=== PATIENT | female | born 1935 | race Caucasian/White ===

== ENCOUNTER 2016-04-20 20:15 | Emergency (ER) | payer MEDICARE, MEDICAID ==
[2016-04-20 20:47] LABS: #Lymphocytes 1.1 thou/uL (1.20-3.40); #Monocytes 0.7 thou/uL (0.11-0.59); #Neutrophils 5.8 thou/uL (1.40-6.50); %Basophils 0.5 % (0.0-1.0); %Eosinophils 0.2 % (0.0-10.0); %Monocytes 9.4 % (0.0-10.0); Hematocrit 44.8 % (36.0-47.0); Red Blood Cell (RBC) Count 4.41 mill/uL (4.20-5.40); White Blood Cell (WBC) Count 7.6 thou/uL (4.8-10.8)
--- NOTE | 2016-04-20 20:47 | RAD ---
PORTABLE CHEST: Date: 04/20/16 An AP portable film at 2030 hours is compared with a 12/26/15 study. FINDINGS: The heart is mildly to moderately enlarged and there is mild congestion of the vessels. Slight inter stitial prominence is present. There may be some tiny pleural effusions, but not large ones. The lenard gs are hyperexpanded as usual. There is a linear scar in the left mid lung. A little increase in rig ht basilar markings could be due to the vascular congestion or an early infiltrate. IMPRESSION: 1. Findings consistent with developing CHF. 2. Mild increase in right basilar markings. This may be related to congestive change or even an ear ly infiltrative pneumonia. POS: HOME
[2016-04-20 21:03] LABS: ALT (SGPT) 68 U/L (0-55); AST (SGOT) 39 U/L (5-34); Alkaline Phosphatase 50 U/L (40-150); Anion Gap 14 mmol/L (10-20); BUN (Urea Nitrogen) 20 mg/dL (9.8-20.1); Bilirubin, Total 0.6 mg/dL (0.2-1.2); Calc. Creatinine Clearance 0 mL/min (70-130); Calcium 9.2 mg/dL (7.8-10.44); Carbon Dioxide 30 mmol/L (23-31); Chloride 106 mmol/L (98-107); Estimated GFR-MDRD 78; Globulin 2.8 g/dL (2.4-3.5); Protein, Total 6.7 g/dL (5.8-8.1)
[2016-04-20] MEDS ORDERED: Enoxaparin Sodium 100 MG/ML SYRINGE ONE (21:17)
[2016-04-20] MEDS ORDERED: Furosemide 40 MG/4 ML VIAL ONE (21:48)
--- NOTE | 2016-04-21 01:16 | PICIS ---
[facility] EMERGENCY RECORD COMMUNICATIONS (21:54 JPIP) COMMUNICATIONS: Physician, contacted/paged at [phone], Reason for notification transfer/admission, Dr Preston accepts. TRIAGE ([place] Apr 20, 2016 20:21 KMOR) TRIAGE NOTES: increased sob over last 4 days, hx copd. ([place] Apr 20, 2016 20:21 KMOR) PATIENT: NAME: Michelle Mendoza, AGE: 80, GENDER: female, : [id number], TIME OF GREET: [place] Apr 20, 2016 20:16, PREFERRED LANGUAGE: Divehi, ETHNICITY: Not or , ECODE BILLING MAP: [facility], SSN: [id number], Zip Code: [address], KG WEIGHT: 52.62, PHONE: , , , PERSON ID: [id number], PAYMENT: [place] Medicare, PCP: DO MCKEON KRISTEL. ([place] Apr 20, 2016 20:21 KMOR) COMPLAINT: Shortness of Breath. ([place] Apr 20, 2016 20:21 KMOR) ADMISSION: URGENCY: 2 Emergent, ADMISSION SOURCE: Home, TRANSPORT: CAR, BED: ER -04. ([place] Apr 20, 2016 20:21 KMOR) PAIN: No complaint of pain. (20:41 AADK) No complaint of pain. (20:46 AADK) SIRS SCORING: Heart Rate 110-139 (2), Temp range 96.8-101.1 (0), respiratory rate 12-24 (0), Mental Status altered: no (0), Total SIRS Score 2, Yes, Infection or Suspected Infection. (20:21 AADK) IMMUNIZATIONS: Flu vaccine up to date, Date of immunization: 2015, Pneumococcal vaccine up to date, Date of immunization: 2015. (20:46 AADK) TRIAGE SCREENING: Patient denies suicidal ideation, Patient denies presence of domestic violence. (20:46 AADK) PROVIDERS: TRIAGE NURSE: Gabriela Carrera RN. ([place] Apr 20, 2016 20:21 KMOR) VITAL SIGNS: BP 129/97, Pulse 131, Resp 24, O2 Sat 98, on 2L Oxygen, Time 04/20/2016 20:20. (20:20 KMOR) PREVIOUS VISIT ALLERGIES: codeine. ([place] Apr 20, 2016 20:21 KMOR) codeine. (20:46 AADK) KNOWN ALLERGIES codeine hydrocodone: Reaction: itching tramadol: Reaction: itching Zanaflex: Reaction: Hives, Source: Other Medical Record CURRENT MEDICATIONS pantoprazole: TABLET, DELAYED RELEASE (ENTERIC COATED) : Strength - 40 mg : ORAL Patient Dose: 1 tab(s) Oral once a day. (22:14 AADK) predniSONE: TABLET : Strength - 10 mg : ORAL Patient Dose: 5 mg Oral once a day. (22:14 AADK) furosemide: TABLET : Strength - 20 mg : ORAL &a-1R&a+25V*p+0X*q9912F*c202B*c15G*c2P*p-0X&a-25V&a+1R Name: Michelle Mendoza : 1935 F80 MedRec: [id number] AcctNum: [id number] Prepared: [place] Apr 20, 2016 23:21 by Interface Page 1 of 15 pMD [facility] EMERGENCY RECORD Patient Dose: 1 tab(s) Oral once a day. (22:14 AADK) pravastatin: TABLET : Strength - 40 mg : ORAL Patient Dose: 1 tab(s) Oral once a day. (22:14 AADK) ramipril: CAPSULE : Strength - 5 mg : ORAL Patient Dose: 1 cap(s) Oral 2 times a day. (22:14 AADK) budesonide: AMPUL FOR NEBULIZATION (ML) : Strength - 0.5 mg/2 mL : INHALATION Patient Dose: 1 cap(s) Inhaler once a day. (22:14 AADK) Perforomist: VIAL, NEBULIZER (ML) : Strength - 20 mcg/2 mL : INHALATION Patient Dose: 1 puff(s) Inhaler 2 times a day. (22:14 AADK) albuterol sulfate: VIAL, NEBULIZER (ML) : Strength - 2.5 mg/3 mL (0.083 %) : INHALATION Patient Dose: 1 ea Nebulize every 4 hours prn. (22:15 AADK) glipiZIDE: TABLET : Strength - 5 mg : ORAL Patient Dose: 5 mg Oral once a day (in the morning). (22:17 AADK) baclofen: TABLET : Strength - 10 mg : ORAL Patient Dose: 10 mg Oral 2 times a day. (22:17 AADK) Eliquis: TABLET : Strength - 2.5 mg : ORAL Patient Dose: 2.5 mg Oral 2 times a day. (22:17 AADK) verapamil: CAPSULE,24HR EXTENDED RELEASE PELLET CT : Strength - 100 mg : ORAL Patient Dose: 100 mg Oral once a day (at bedtime). (22:21 AADK) VITAL SIGNS VITAL SIGNS: BP: 129/97, Pulse: 131, Resp: 24, O2 sat: 98 on 2L Oxygen, Time: 04/20/2016 20:20. (20:20 KMOR) Temp: 98.1 (Oral), Time: 04/20/2016 20:31. (20:31 CHOB) BP: 125/68, Pulse: 80, Resp: 18 (Non-Labored), O2 sat: 97 on 2L Oxygen, Time: 04/20/2016 20:40. (20:40 CHOB) BP: 124/71, Pulse: 90, Resp: 19, Pain: 0, O2 sat: 97 on 2L Oxygen, Time: 04/20/2016 21:03. (21:03 CHOB) Pulse: 125 (Irregular), Resp: 30 (Labored), Pain: 0, O2 sat: 98 on 2L Oxygen, Time: 04/20/2016 20:30. (20:30 AADK) BP: 118/75, Pulse: 78, Resp: 20 (Non-Labored), Pain: 0, O2 sat: 97 on 2L Oxygen, Time: 04/20/2016 21:30. (21:30 AADK) BP: 124/73, Pulse: 86, Resp: 22 (Non-Labored), Pain: 0, O2 sat: 97 on 2L Oxygen, Time: 04/20/2016 21:15. (21:15 AADK) BP: 121/70, Pulse: 78, Resp: 20 (Non-Labored), Pain: 0, O2 sat: 97 on 2L Oxygen, Time: 04/20/2016 21:45. (21:45 AADK) BP: 134/68, Pulse: 84, Resp: 20 (Non-Labored), Pain: 0, O2 sat: 95 on 2L Oxygen, Time: 04/20/2016 22:00. (22:00 AADK) Temp: 97.6 (Oral), Time: 04/20/2016 22:25. (22:25 AADK) &a-1R&a+25V*p+0X*i9132O*c202B*c15G*c2P*p-0X&a-25V&a+1R Name: Michelle Mendoza : 1935 F80 MedRec: [id number] AcctNum: [id number] Prepared: [place] Apr 20, 2016 23:21 by Interface Page 2 of 15 pMD [facility] EMERGENCY RECORD BP: 143/66, Pulse: 94, Resp: 22 (Non-Labored), Pain: 0, O2 sat: 97 on 2L Oxygen, Time: 04/20/2016 22:15. (22:15 AADK) BP: 115/68, Pulse: 86, Resp: 20 (Non-Labored), Pain: 0, O2 sat: 98 on 2L Oxygen, Time: 04/20/2016 22:30. (22:30 AADK) BP: 135/82, Pulse: 91 (Irregular), Resp: 23 (Non-Labored), Pain: 0, O2 sat: 98 on 2L Oxygen, Time: 04/20/2016 22:53. (22:53 AADK) NURSING ASSESSMENT: FALL RISK (22:22 AADK) FALL RISK: Fall risk assessment findings include: no history of falls (0), No bed rest greater than 2 days (0), No use of level of consciousness altering agents with mentation or cognitive changes (0), No change in blood pressure (0), No sensory deficits (0), Impaired mobility (3), No neurologic diagnosis (0), Elimination problems (3), No confusion (0), Total score 6, Fall risk, Notes: INITIATED FALL RISK DUE TO THIS SCORE. YELLOW NON-SKID SOCKS APPLIED AND YELLOW BAND APPLIED TO PT'S ID BAND. HENDRICH II FALL RISK: Hendrich II Fall Risk assessment findings include patient not confused, disoriented or impulsive, not symptomatic or depressed, altered elimination(1), no dizziness or vertigo, female, no antiepileptics (anticonvulsants) administered, no Benzodiazepines administered, Pushes up, successful in one attempt(1), Total score 2. NURSING ASSESSMENT: RESPIRATORY /CHEST (20:30 AADK) CONSTITUTIONAL: Patient arrives, via hospital wheelchair, Gait steady, History obtained from patient, Patient appears, in respiratory distress, Patient cooperative, Patient alert, Oriented to person, place and time, Skin warm, Skin dry, Skin normal in color, Mucous membranes pink, Mucous membranes moist, Patient is well-groomed, Patient complains of SOB, PT PRESENTS TO ER WITH C/O SOB THAT HAS GRADUALLY BECOME WORSE OVER THE PAST 2 WEEKS, PT STATES "EVER SINCE THAT LUNG DOCTOR CHANGED MY MEDICATION 2 WEEKS AGO." MILD RESPIRATORY DISTRESS NOTED. PLACED ON O2 AT 2LPM. SKIN W/D, PINK. O2 SAT 98% AT THIS TIME. LUNGS DIMINISHED POSTERIOR. NO COUGH NOTED. A/R PULSE EQUAL AND IRREGULAR. PT ON MACHINE TOOL OPERATOR SHOWING AFIB W/RVR. DR WHALEY AT BEDSIDE AND AWARE. RESPIRATORY/CHEST: Lungs auscultated, Breath sounds diminished, to bilateral upper lobes, to bilateral lower lobes, POSTERIOR ONLY, Respiratory assessment findings include respiratory effort, labored, dyspneic, Respirations regular, Converses, in short phrases, Neck and chest exam findings include trachea midline, Chest expansion equal, Chest movement symmetrical, no signs of distress, no retractions noted, no cyanosis, no associated cough noted, no associated fever. SAFETY: Side rails up, Cart/Stretcher in lowest position, Family at bedside, Call light within reach, Hospital ID band on, Patient in view of the nursing station. &a-1R&a+25V*p+0X*w4920L*c202B*c15G*c2P*p-0X&a-25V&a+1R Name: Mcihelle Mendoza : 1935 F80 MedRec: [id number] AcctNum: [id number] Prepared: [place] Apr 20, 2016 23:21 by Interface Page 3 of 15 pMD [facility] EMERGENCY RECORD NURSING ASSESSMENT: SKIN (22:23 AADK) SKIN: Skin assessment findings include skin warm, Skin dry, Skin normal in color, Notes: NO OPEN AREAS/SKIN BREAKDOWN NOTED. NURSING PROCEDURE: MACHINE TOOL OPERATOR PATIENT IDENTIFIER: Patient actively involved in identification process, Patient's identity verified by patient stating name, Patient's identity verified by patient stating date. (20:24 AADK) MACHINE TOOL OPERATOR: Cardiac monitoring indicated for compliant of an irregular heart rate, Cardiac monitoring indicated for SOB, Patient placed on monitor worker, Heart rate: 130'S, showing atrial fibrillation with rapid ventricular response, without ectopy, Strip posted on chart, Patient placed on non-invasive blood pressure monitor, with disposable blood pressure cuff applied, Patient placed on continuous pulse oximetry, Adult/pediatric oxisensor applied, Oxygen saturation 98%, Notes: ON 2 L NC. (20:24 AADK) FOLLOW-UP: After procedure, alarms set and on, After procedure, patient tolerating monitoring. (20:50 AADK) NURSING PROCEDURE: COMMUNICATIONS COMMUNICATIONS: Ambulance service, contacted at [phone], Name of provider [facility], Person contacted [facility], requested for transfer to another facility, by advanced life support transport, STATES [facility] IS ON A CALL. (21:55 AADK) Ambulance service, Person contacted [facility] GUTI[facility]RREZ CALLED BACK AND SAID [facility] IS STILL ON A CALL, SHE WILL SEND A TRUCK FROM [facility] TO TRANSFER PT. THIS NURSE UPDATED DR WHALEY ON DELAY IN TRANSFER. (22:16 AADK) Ambulance service, Person contacted [facility] GUTI[facility]RREZ CALLED BACK AND SAID [facility] IS NOW ON THEIR WAY TO TRANSFER PT TO [facility] ER. (22:39 AADK) NURSING PROCEDURE: EKG CHART (20:24 AADK) PATIENT IDENTIFIER: Patient actively involved in identification process, Patient's identity verified by patient stating name, Patient's identity verified by patient stating date. EKG: EKG indicated for complaint of an irregular heart beat, EKG indicated for SOB, 12 lead EKG performed on the left chest, done by Cathy CARRERA RN, first EKG. NURSING PROCEDURE: INTAKE AND OUTPUT INTAKE AND OUTPUT: Total Intake (ml): 0ml, Urine output(ml): 250, Total Output (ml): 250ml, Grand Total: Output is greater than intake by 250mls. (22:07 AADK) Total Intake (ml): 0ml, Urine output(ml): 350, Total Output (ml): 350ml, Grand Total: Output is greater than intake by 350mls. (22:26 AADK) Total Intake (ml): 0ml, Urine output(ml): 350, Total Output &a-1R&a+25V*p+0X*n5656A*c202B*c15G*c2P*p-0X&a-25V&a+1R Name: Michelle Mendoza : 1935 F80 MedRec: [id number] AcctNum: [id number] Prepared: [place] Apr 20, 2016 23:21 by Interface Page 4 of 15 pMD [facility] EMERGENCY RECORD (ml): 350ml, Grand Total: Output is greater than intake by 350mls. (22:44 AADK) NURSING PROCEDURE: IV (20:35 AADK) PATIENT IDENITIFIER: Patient actively involved in identification process, Patient's identity verified by patient stating name, Patient's identity verified by patient stating date. IV SITE 1: IV therapy indicated for medication administration, IV therapy indicated for SOB, IV established, to the right antecubital, using an 18 gauge catheter, in one attempt, IV site prepped with Chlorhexidine, Saline lock established, Flushed with normal saline (mls): 10, Labs drawn at time of placement, labeled in the presence of the patient and sent to lab, Blood cultures drawn at time of placement, labeled in the presence of the patient and sent to lab. NURSING PROCEDURE: NURSE NOTES NURSES NOTES: Patient is improving, Patient in no apparent distress, Patient is awaiting results, Patient re-positioned to high Bearden's position, Notes: PT STATES SHE IS BREATHING BETTER. DENIES PAIN. (21:21 AADK) Notes: PT DID NOT BRING HER MEDICATION LIST OR MEDICATIONS. PT STATES HER GRANDSON ANNE CAN GO AND GET THE LIST AND MEDICATIONS. THIS NURSE ASKED ANNE TO PLEASE GO AND GET PT'S MEDICATIONS SO WE CAN VERIFY THEM. ANNE LEFT ER TO GET PT'S MEDS/LIST. (21:00 AADK) Patient assisted to bathroom with steady gait, Patient is improving, Patient in no apparent distress, Assistance offered to patient, Notes: ASSISTED PT TO BSC, VOIDED 250 ML OF CLEAR, YELLOW URINE. (22:07 AADK) NURSING PROCEDURE: OXYGEN THERAPY PATIENT IDENTIFIER: Patient actively involved in identification process, Patient's identity verified by patient stating name, Patient's identity verified by patient stating date. (20:21 AADK) OXYGEN THERAPY: Oxygen therapy indicated for respiratory distress, Oxygen therapy indicated for SOB, Prior to procedure, breath sounds diminished, to bilateral upper lobes, to bilateral lower lobes, POSTEROR ONLY, Oxygen saturation 98%, by adult/pediatric oxisensor, single pulse oximetry reading, 2L oxygen given, via nasal cannula applied, Applied by Cathy CARRERA RN, via nasal cannula. (20:21 AADK) FOLLOW-UP: After procedure, oxygen saturation 98%. (20:50 AADK) NURSING PROCEDURE: TRANSFER TRANSFER: Reason for transfer need for specialized care, Diagnosis: AFIB W/RVR; CHF, Accepting institution: [facility], Accepting physician: DR PRESTON, Referring physician: DR WHALEY, Transported by urgent ambulance, accompanied by emergency medical services personnel, Summary of Care printed, Copy of patient record &a-1R&a+25V*p+0X*t5695X*c202B*c15G*c2P*p-0X&a-25V&a+1R Name: Michelle Mendoza Juliana : 1935 F80 MedRec: [id number] AcctNum: [id number] Prepared: [place] Apr 20, 2016 23:21 by Interface Page 5 of 15 pMD [facility] EMERGENCY RECORD prepared for receiving facility, Copy of diagnostic studies, Status of patient's valuables documented on chart, Patient consent for transfer signed, Family member contacted, GEREMIAS RODRÍGUEZ AT BEDSIDE. (21:49 AADK) Report called to receiving facility, [facility], Provided opportunity to answer questions, Notes: [facility] HERE AND TRANSFERRED PT VIA STRETCHER TO [facility] ER AT THIS TIME. ALL BELONGINGS WITH PT EXCEPT FOR HER HOME O2 TANK WHICH HER GRANDLELAND RODRÍGUEZ IS TAKING HOME AT THIS TIME. (23:05 AADK) BELONGINGS: Belongings remain with patient, Valuables remain with patient. (21:49 AADK) EQUIPMENT WITH PATIENT: Equipment with patient at time of transfer monitor worker, Equipment with patient at time of transfer IV pump, Saline lock intact and patent at time of transfer. (23:05 AADK) ORDER DETAILS Order Name: B type Natriuretic Peptide, Status: Active, Time: 20:29 04/20/2016, User: MARY, - Ordered for: DO Whaley Joseph, - Entered by: DO Whaley Joseph - Sun Apr 20, 2016 20:29, - Quantity: 1, Order Name: MACHINE TOOL OPERATOR ED, Status: Done, Time: 20:39 04/20/2016, User: AADK, - Ordered for: DO Whaley Joseph, - Entered by: DO Whaley Joseph - Sun Apr 20, 2016 20:29, - Quantity: 1, Order Name: Cardiac Profile w/CKMB & Troponin - I, Status: Active, Time: 20:29 04/20/2016, User: MARY, - Ordered for: DO Whaley Joseph, - Entered by: DO Whaley Joseph - Sun Apr 20, 2016 20:29, - Quantity: 1, Order Name: CBC with Differential, Status: Active, Time: 20:29 04/20/2016, User: MARY, - Ordered for: DO Whaley Joseph, - Entered by: DO Whaley Joseph - Sun Apr 20, 2016 20:29, - Quantity: 1, Order Name: Comprehensive Metabolic Panel, Status: Active, Time: 20:29 04/20/2016, User: MARY, - Ordered for: DO Whaley Joseph, - Entered by: DO Whaley Joseph - Sun Apr 20, 2016 20:29, - Quantity: 1, Order Name: Culture, Blood, Status: Active, Time: 20:29 04/20/2016, User: MARY, - Ordered for: DO Whaley Joseph, - Entered by: DO Whaley Joseph - Sun Apr 20, 2016 20:29, - Quantity: 1, Order Name: EKG 12 Lead in Emergency Room, Status: Active, Time: 20:29 04/20/2016, User: MARY, &a-1R&a+25V*p+0X*s4798F*c202B*c15G*c2P*p-0X&a-25V&a+1R Name: Michelle Mendoza : 1935 F80 MedRec: [id number] AcctNum: [id number] Prepared: Marquita Apr 20, 2016 23:21 by Interface Page 6 of 15 D [facility] EMERGENCY RECORD - Ordered for: DO Whaley Joseph, - Entered by: DO Whaley Joseph - Sun Apr 20, 2016 20:29, - Quantity: 1, Order Name: ERRT Oxygen Usage ER, Status: Active, Time: 20:29 04/20/2016, User: MARY, - Ordered for: DO Whaley Joseph, - Entered by: DO Whaley Joseph - Sun Apr 20, 2016 20:29, - Quantity: 1, Order Name: ERRT Pulse Oximeter ER, Status: Active, Time: 20:29 04/20/2016, User: MARY, - Ordered for: DO Whaley Joseph, - Entered by: DO Whaley Joseph - Sun Apr 20, 2016 20:29, - Quantity: 1, Order Name: SALINE LOCK, Status: Done, Time: 20:39 04/20/2016, User: ROBINK, - Ordered for: DO Whaley Joseph, - Entered by: DO Whaley Joseph - Sun Apr 20, 2016 20:29, - Quantity: 1, Order Name: XR Chest 1 View Portable, Status: Active, Time: 20:29 04/20/2016, User: MARY, - Ordered for: DO Whaley Joseph, - Entered by: DO Whaley Joseph - Sun Apr 20, 2016 20:29, - Quantity: 1. MEDICATION ADMINISTRATION SUMMARY Drug Name: Lasix injection, Dose Ordered: 40 mg, Route: IV Push, Status: Given, Time: 21:45 04/20/2016, Drug Name: Lovenox, Dose Ordered: 50 mg, Route: Subcutaneous, Status: Given, Time: 21:20 04/20/2016, Drug Name: Normal Saline, Dose Ordered: 100 mL/hr, Route: IV Fluid Infusion, Status: Given, Time: 20:43 04/20/2016, Drug Name: Cardizem intravenous, Dose Ordered: 5 mg/hr, Route: IV Piggy Back, Status: Given, Time: 20:40 04/20/2016, Drug Name: Cardizem intravenous, Dose Ordered: 20 mg, Route: IV Push, Status: Given, Time: 20:35 04/20/2016, Drug Name: *aspirin oral, Dose Ordered: 324 mg, Route: Oral, Status: Given, Time: 20:33 04/20/2016, *Additional information available in notes, Detailed record available in Medication Service section. MEDICATION SERVICE aspirin oral: Order: aspirin oral (aspirin) - Dose: 324 mg : Oral Notes: 4 X 81mg TABLETS AT ONCE Ordered by: Dima Whaley DO Entered by: DO Marquita Damian Apr 20, 2016 20:30 Documented as given by: [place] Kaplan Apr 20, 2016 20:33 Patient, Medication, Dose, Route and Time verified prior to administration. Amount given: 324MG, Site: Medication administered P.O., Correct &a-1R&a+25V*p+0X*g4805P*c202B*c15G*c2P*p-0X&a-25V&a+1R Name: Michelle Mendoza : 1935 F80 MedRec: [id number] AcctNum: [id number] Prepared: Marquita Apr 20, 2016 23:21 by Interface Page 7 of 15 pMD [facility] EMERGENCY RECORD patient, time, route, dose and medication confirmed prior to administration, Patient advised of actions and side-effects prior to administration, Allergies confirmed and medications reviewed prior to administration, Patient in position of comfort, Side rails up, Cart in lowest position, Family at bedside, Call light in reach. : Follow Up : Response assessment performed, No signs or symptoms of allergic reaction noted, Decreased symptoms. (22:08 AADK) Cardizem intravenous: Order: Cardizem intravenous (diltiazem HCl) - Dose: 20 mg : IV Push Schedule: Now Ordered by: Dima Whaley DO Entered by: DO Marquita Damian Apr 20, 2016 20:30 Documented as given by: [place] Kaplan Apr 20, 2016 20:35 Patient, Medication, Dose, Route and Time verified prior to administration. Amount given: 20mg, IV SITE #1 IVP, initial medication, Slowly, Pre-administration assessment shows O2 saturation reading 99%, Pre-administration assessment shows O2 AMT: 2L, Pre-administration assessment shows On oxygen, Pre-administration assessment shows Patient on monitor worker showing atrial fibrillation, Awake and alert- acceptable, Connections checked prior to administration, Line traced prior to administration, Catheter placement confirmed via flush prior to administration, IV site without signs or symptoms of infiltration during medication administration, No swelling during administration, No drainage during administration, IV flushed after administration, Correct patient, time, route, dose and medication confirmed prior to administration, Patient advised of actions and side-effects prior to administration, Allergies confirmed and medications reviewed prior to administration, Patient in position of comfort, Side rails up, Cart in lowest position, Family at bedside, Call light in reach, p-124 afib w/rvr 129/67. : Follow Up : Response assessment performed, No signs or symptoms of allergic reaction noted, Decreased symptoms, Decreased heart rate, _IV SITE #1:_. (22:08 AADK) Cardizem intravenous: Order: Cardizem intravenous (diltiazem HCl) - Dose: 5 mg/hr : IV Piggy Back Schedule: Every hour Ordered by: Dima Whaley DO Entered by: DO Marquita Damian Apr 20, 2016 20:30 Documented as given by: [place] Kaplan Apr 20, 2016 20:40 Patient, Medication, Dose, Route and Time verified prior to administration. Amount given: 5mg/hr, IV SITE #1 IVPB or drip, subsequent infusion, IVPB mixed in: 100ml, Fluid: 0.9NS, via primary tubing, on an IV pump, at RATE-5ML/HR, Pre-administration assessment shows Patient on monitor worker showing atrial fibrillation, Awake and alert- acceptable, Connections checked prior to administration, Line traced prior to administration, Catheter placement confirmed via flush prior to administration, IV site without signs or symptoms of infiltration &a-1R&a+25V*p+0X*r2508U*c202B*c15G*c2P*p-0X&a-25V&a+1R Name: Michelle Mendoza : 1935 F80 MedRec: [id number] AcctNum: [id number] Prepared: Marquita Apr 20, 2016 23:21 by Interface Page 8 of 15 pMD [facility] EMERGENCY RECORD during medication administration, No swelling during administration, No drainage during administration, IV flushed after administration, Correct patient, time, route, dose and medication confirmed prior to administration, Patient advised of actions and side-effects prior to administration, Allergies confirmed and medications reviewed prior to administration, Patient in position of comfort, Side rails up, Cart in lowest position, Family at bedside, Call light in reach, 125/68 P-80. : Follow Up : Response assessment performed, No signs or symptoms of allergic reaction noted, Decreased symptoms, Decreased heart rate, _IV SITE #1:_, Medication infusion continued upon transfer from emergency department, on ThuApr 20, 2016 23:05, Total infusion time IV site 1 2 hours, 25 minutes, ., Total amount infused: 10.7 MLS, Response assessment performed. (23:05 AADK) Lasix injection: Order: Lasix injection (furosemide) - Dose: 40 mg : IV Push Schedule: Now Ordered by: Dima Whaley DO Entered by: Dima Whaley DO [place] Apr 20, 2016 21:23 Documented as given by: Pebbles Robledo RN [place] Apr 20, 2016 21:45 Patient, Medication, Dose, Route and Time verified prior to administration. Amount given: 40 MG, IV SITE #1 IVP, initial medication, Slowly, Connections checked prior to administration, Line traced prior to administration, Catheter placement confirmed via flush prior to administration, IV site without signs or symptoms of infiltration during medication administration, No swelling during administration, No drainage during administration, IV flushed after administration, Correct patient, time, route, dose and medication confirmed prior to administration, Patient advised of actions and side-effects prior to administration, Allergies confirmed and medications reviewed prior to administration, Patient in position of comfort, Side rails up, Cart in lowest position, Family at bedside, Call light in reach. : Follow Up : Response assessment performed, No signs or symptoms of allergic reaction noted, Increased urine output, _IV SITE #1:_. (22:08 AADK) Lovenox: Order: Lovenox (enoxaparin sodium) - Dose: 50 mg : Subcutaneous Schedule: Now Ordered by: Dima Whaley DO Entered by: Dima Whaley DO [place] Apr 20, 2016 21:13 Documented as given by: Pebbles Robledo RN [place] Apr 20, 2016 21:20 Patient, Medication, Dose, Route and Time verified prior to administration. Amount given: 50 MG, Medication administered to right abdomen, Patient in position of comfort, Side rails up, Cart in lowest position, Call light in reach, DOSAGE VERIFIED WITH FRANCI HERNANDEZ RN PRIOR TO ADMINISTRATION. : Follow Up : Response assessment performed, No signs or &a-1R&a+25V*p+0X*r6558Q*c202B*c15G*c2P*p-0X&a-25V&a+1R Name: Kelly Michelle D : 1935 F80 MedRec: [id number] AcctNum: [id number] Prepared: ThuApr 20, 2016 23:21 by Interface Page 9 of 15 pMD [facility] HOSPITAL EMERGENCY RECORD symptoms of allergic reaction noted. (22:09 AADK) Normal Saline: Order: Normal Saline (0.9 % sodium chloride) - Dose: 100 mL/hr : IV Fluid Infusion Ordered by: Dima Whaley DO Entered by: Dima Whaley DO [place] Apr 20, 2016 20:31 Documented as given by: Helena Moore RN [place] Apr 20, 2016 20:43 Patient, Medication, Dose, Route and Time verified prior to administration. Amount given: 1 LITER @ 100ML/HR, IV SITE #1 IV fluids established for hydration, IV SITE #1 into right wrist, IV SITE #1 1st bag hung, amount 1 Liter hung, IV SITE #1 Rate of infusion (non-bolus) Infusing at 100 ml/hr, via primary tubing, IV SITE #1 on IV pump, concurrent infusion, via primary tubing, on an IV pump, at 100 ml/hr, Connections checked prior to administration, Line traced prior to administration, Catheter placement confirmed via flush prior to administration, IV site without signs or symptoms of infiltration during medication administration, No swelling during administration, No drainage during administration, IV flushed after administration, Correct patient, time, route, dose and medication confirmed prior to administration, Patient advised of actions and side-effects prior to administration, Allergies confirmed and medications reviewed prior to administration, Patient in position of comfort, Side rails up, Cart in lowest position, Family at bedside, Call light in reach. : Follow Up : Response assessment performed, No signs or symptoms of allergic reaction noted, _IV SITE #1:_, IV fluid infusion continued upon transfer from emergency department, on ThuApr 20, 2016 23:05, Total fluid hydration time IV site 1 2 hours, 25 minutes, ., Total amount infused: 215 MLS. (23:05 AADK) HPI SHORTNESS OF BREATH (21:25 JPIP) CHIEF COMPLAINT: Patient presents for evaluation of shortness of breath, Patient presents for evaluation of chest pain. HISTORIAN: History provided by patient. LOCATION: No localizing symptoms. QUALITY: Symptoms described as tightness. TIME COURSE: Gradual onset of symptoms, 4, days priror to arrival, Symptoms are worsening, are constant. ASSOCIATED WITH: Associated with anxiety, Associated with chest pain, Associated with dyspnea on exertion, No associated fever, No associated nausea, Associated with paroxysmal nocturnal dyspnea, No associated vomiting, +orthopnea. EXACERBATED BY: Patient's condition exacerbated by exercise, Patient's condition exacerbated by lying flat. RELIEVED BY: Patient's condition relieved by nothing. ROS (21:26 JPIP) CONSTITUTIONAL: Historian denies chills, reports fatigue, denies fever. &a-1R&a+25V*p+0X*c8979J*c202B*c15G*c2P*p-0X&a-25V&a+1R Name: Michelle Mendoza : 1935 F80 MedRec: [id number] AcctNum: [id number] Prepared: Marquita Apr 20, 2016 23:21 by Interface Page 10 of 15 pMD [facility] EMERGENCY RECORD CARDIOVASCULAR: Historian reports chest pain, pleuritic, Historian reports dyspnea on exertion, reports palpitations. RESPIRATORY: Historian reports cough, reports shortness of breath. GI: Historian denies nausea, denies vomiting. MUSCULOSKELETAL: Historian denies myalgias. SKIN: Historian denies rash, denies skin changes, denies skin lesions. NEUROLOGIC: Historian denies confusion, denies dizziness, denies lethargy, denies mental status changes. NOTES: All systems reviewed, negative except as described above. PAST MEDICAL HISTORY MEDICAL HISTORY: Past medical history includes history of diabetes, Type II, Past medical history includes pulmonary disease, chronic obstructive pulmonary disease, emphysema. Notes: "leaky valve", Past medical history includes cardiac history, arrhythmia, atrial fibrillation, Treated with stent placement, Number of stents: 2, STENTS, 1 IN EACH LEG, Past medical history includes history of hypertension, Past medical history includes vascular disease history, claudication. Past medical history includes cardiac history, coronary artery disease. New dx of Osteoporosis. Reviewed 04/20/16. (20:46 AADK) FEMALE SURGICAL HISTORY: "opened up veins" in leg cyst removed from abdomen. VASCULAR SURGERY OF LOWER EXT. Verified 04/20/16. (20:46 AADK) PSYCHIATRIC HISTORY: No previous psychiatric history. Verified 04/20/16. (20:46 AADK) SOCIAL HISTORY: Patient denies alcohol use, Patient is a former tobacco user, smoked cigarettes, Patient quit smoking 3 years ago. Patient denies drug use,. Reviewed 04/20/16. (20:46 AADK) FAMILY HISTORY: No known family hisotry. (20:46 AADK) NOTES: Nursing records reviewed, Old chart reviewed, Medication list reviewed. (21:29 JPIP) PHYSICAL EXAM (21:28 JPIP) CONSTITUTIONAL: Vital Signs Reviewed, Patient afebrile, Pulse, tachycardic, Blood pressure, hypertensive, Respiratory rate, increased, Normal pulse oximetry, Patient appears, uncomfortable, Patient alert and oriented to person, place and time. HEAD: Head exam included findings of head atraumatic, normocephalic. EYES: Eye exam included findings of eyelids normal to inspection, Conjunctiva normal, Sclera normal, no periorbital ecchymosis, no periorbital edema, no periorbital erythema. ENT: Pharynx exam normal, not injected, no swelling, symmetrical, Uvula exam normal, midline, no edema, Teeth with. &a-1R&a+25V*p+0X*s1387W*c202B*c15G*c2P*p-0X&a-25V&a+1R Name: Michelle Mendoza : 1935 F80 MedRec: [id number] AcctNum: [id number] Prepared: Marquita Apr 20, 2016 23:21 by Interface Page 11 of 15 pMD [facility] EMERGENCY RECORD NECK: Neck exam included findings of normal range of motion, Trachea midline, no carotid bruits, no jugular venous distention, no cervical adenopathy, no tenderness. RESPIRATORY CHEST: Respiratory exam included findings of, mild respiratory distress, Breath sounds not clear, No wheezing, No rales, No rhonchi, Breath sounds not absent, Breath sounds diminished. CARDIOVASCULAR: Cardiovascular exam included findings of, rate tachycardic, rhythm irregularly irregular, Heart sounds normal. ABDOMEN FEMALE: Abdominal exam included findings of abdomen nontender, Liver normal, Spleen normal, no distension, no mass, no pulsatile masses, no peritoneal signs, no rigidity, no guarding, no rebound. BACK: no costovertebral angle tenderness. UPPER EXTREMITY: Upper extremity exam included findings of inspection normal, Range of motion normal. LOWER EXTREMITY: Lower extremity exam included findings of inspection normal, Range of motion normal, no edema. NEURO: Neuro exam findings include patient oriented to person, place and time, no focal motor deficits. SKIN: Skin exam included findings of skin warm, dry, and normal in color. LYMPHATIC: Lymphatic exam included findings of cervical nodes normal, Submandibular normal. PSYCHIATRIC: Psychiatric exam included findings of patient oriented to person place and time, Affect, agitated, anxious. LAB INTERPRETATION (21:18 JPIP) INTERPRETATION: I reviewed the lab results, All labs normal except as noted below, CBC abnormal, White blood cell count normal, Hemoglobin normal, Hematocrit normal, MCV 102 MCH 33.3, Chemistry abnormal, Sodium elevated, Glucose decreased, Cardiac enzymes abnormal, CK-MB normal, Troponin elevated, BNP elevated, BNP 575, Liver functions abnormal, AST(SGOT) elevated, ALT(SGPT) elevated. EVENTS TRANSFER: Triage to Emergency Emergency Room -04. (Marquita Apr 20, 2016 20:21 KMOR) Removed from Emergency Emergency Room -04. (23:13 AADK) RADIOLOGYINTERPRETATION (20:53 JPIP) CHEST: Films of the chest show, interstitial infiltrate, no pneumothorax, no hemothorax, no pleural effusion, cardiomegaly, chronic obstructive pulmonary disease, moderate congestive heart failure. 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 &a-1R&a+25V*p+0X*t8464V*c202B*c15G*c2P*p-0X&a-25V&a+1R Name: Michelle Mendoza : 1935 F80 MedRec: [id number] AcctNum: [id number] Prepared: Marquita Apr 20, 2016 23:21 by Interface Page 12 of 15 D [facility] EMERGENCY RECORD EKG INTERPRETATION (20:55 JPIP) MONITOR STRIP: telemetry monitor strip interpreted by Emergency Department Physician, Monitor strip shows atrial fibrillation with rapid ventricular response, with no ectopics. 12 LEAD EKG INTERPRETATION: 12 lead EKG interpreted by Emergency Department Physician at time of study, 12 lead EKG shows, atrial fibrillation with rapid ventricular response, Rate (beats per minute): 113, with no ectopics, ST segments normal, T waves normal, [place], right, Clinical impression:, dysrhythmia - atrial. O2SAT INTERPRETATION (20:32 JPIP) O2SAT: Single pulse oximetry, Oxygen saturation 98%, on 2L, via nasal cannula, Oxygen saturation interpretation: Normal, Intervention required: patient observed, Intervention required: Oxygen administration. DOCTOR NOTES RE-EVALUATION: Routine re-evaluation, after administration of, cardizem, The patient's condition has improved, less dyspnic/tachypnic as heart rate has decreased. (21:19 JPIP) TEXT: Discussed findings with patient, will transfer to [facility] for admission and treatment. (21:43 JPIP) PROBLEM LIST No recorded problems DIAGNOSIS (21:55 JPIP) FINAL: PRIMARY: atrial fibrillation with RVR, ADDITIONAL: CHF, COPD UNSPECIFIED. DISPOSITION PATIENT: Disposition Type: Transfer, Disposition: Transfer to [facility], Disposition Transport: Ambulance, Condition: Improved. (21:55 JPIP) Patient left the department. (23:13 AADK) PRESCRIPTION No recorded prescriptions IMAGING *EKG: Image captured from scanner. (22:19 AADK) Image captured from scanner. (22:20 AADK) MONITOR STRIPS: Image captured from scanner. (22:30 AADK) *SUPPLY CHARGE SHEET: Image captured from scanner. (23:14 AADK) *MEMORANDUM OF TRANSFER: Image captured from scanner. (23:14 AADK) CONSENTS: Image captured from scanner. (23:15 AADK) PHYSICIAN CERTIFICATION STATEMENT: Image captured from scanner. &a-1R&a+25V*p+0X*z8354P*c202B*c15G*c2P*p-0X&a-25V&a+1R Name: Michelle Mendoza : 1935 F80 MedRec: [id number] AcctNum: [id number] Prepared: Marquita Apr 20, 2016 23:21 by Interface Page 13 of 15 pMD [facility] EMERGENCY RECORD (23:15 AADK) RESULTS RADIOLOGY: XR Chest 1 View Portable Observe DT: Marquita Apr 20, 2016 20:31, CXRP PORTABLE CHEST: Date: 04/20/16 An AP portable film at 2030 hours is compared with a 12/26/15 study. FINDINGS: The heart is mildly to moderately enlarged and there is mild congestion of the vessels. Slight inter stitial prominence is present. There may be some tiny pleural effusions, but not large ones. The lenard gs are hyperexpanded as usual. There is a linear scar in the left mid lung. A little increase in rig ht basilar markings could be due to the vascular congestion or an early infiltrate. IMPRESSION: 1. Findings consistent with developing CHF. 2. Mild increase in right basilar markings. This may be related to congestive change or even an ear ly infiltrative pneumonia. POS: HOME . (22:03 [facility]) LABORATORY: CBC with Differential Collection DT: Marquita Apr 20, 2016 20:43, White Blood Cell (WBC) Count 7.6 thou/uL, Range (4.8-10.8), Red Blood Cell (RBC) Count 4.41 mill/uL, Range (4.20-5.40), Hemoglobin 14.7 g/dL, Range (12.0-16.0), Hematocrit 44.8 %, Range (36.0-47.0), *Mean Corpuscular Volume 102.0 - H fl, Range (81.0-99.0), *Mean Corpuscular Hemoglobin 33.3 - H pg, Range (27.0-31.0), Mean Corpuscular HGB CONC 32.8 g/dL, Range (32.0-36.0), RBC Distribution Width 13.2 %, Range (11.5-14.5), Platelet Count 237 thou/uL, Range (130-400), *Mean Platelet Volume 7.0 - L fL, Range (7.4-10.4), *%Neutrophils 75.9 - H %, Range (42.0-75.0), *%Lymphocytes 14.0 - L %, Range (21.0-51.0), %Monocytes 9.4 %, Range (0.0-10.0), %Eosinophils 0.2 %, Range (0.0-10.0), %Basophils 0.5 %, Range (0.0-1.0), #Neutrophils 5.8 thou/uL, Range (1.40-6.50), &a-1R&a+25V*p+0X*t2434D*c202B*c15G*c2P*p-0X&a-25V&a+1R Name: ChesterMichelle : 1935 F80 MedRec: [id number] AcctNum: [id number] Prepared: Marquita Apr 20, 2016 23:21 by Interface Page 14 of 15 pMD [facility] EMERGENCY RECORD *#Lymphocytes 1.1 - L thou/uL, Range (1.20-3.40), *#Monocytes 0.7 - H thou/uL, Range (0.11-0.59), #Eosinphils 0.0 thou/uL, Range (0.0-0.7), #Basophils 0.0 thou/uL, Range (0.0-0.2). (20:51 [facility]) Comprehensive Metabolic Panel Collection DT: Marquita Apr 20, 2016 20:43, *Sodium 146 - H mmol/L, Range (136-145), Potassium 3.7 mmol/L, Range (3.5-5.1), Chloride 106 mmol/L, Range (98-107), Carbon Dioxide 30 mmol/L, Range (23-31), Anion Gap 14 mmol/L, Range (10-20), BUN (Urea Nitrogen) 20 mg/dL, Range (9.8-20.1), Creatinine 0.72 mg/dL, Range (0.6-1.1), Estimated GFR-MDRD 78 , Reference Range for Estimated GFR: Greater than 90, mL/min/1.73 m2 NOTE: The MDRD equation has not been validated for use, with the elderly (over 70 years of age), women, patients with, serious comorbid condition or persons with extremes of body size, muscle, mass, or nutritional status. , *Glucose 67 - L mg/dL, Range (83-110), Calcium 9.2 mg/dL, Range (7.8-10.44), Bilirubin, Total 0.6 mg/dL, Range (0.2-1.2), Protein, Total 6.7 g/dL, Range (5.8-8.1), NOTE: Plasma values are generally 0.3 to 0.5 g/dL higher than serum values, due to the presence of fibrinogen. , Albumin 3.9 g/dL, Range (3.4-4.8), Globulin 2.8 g/dL, Range (2.4-3.5), Alb/Glob Ratio 1.4 g/dL, Range (1.2-2.2), Alkaline Phosphatase 50 U/L, Range (40-150), *AST (SGOT) 39 - H U/L, Range (5-34), *ALT (SGPT) 68 - H U/L, Range (0-55). (21:09 JPIP) Cardiac Profile w/CKMB & TropI Collection DT: [place] Apr 20, 2016 20:43, CKMB 6.3 ng/mL, Range (0-6.6), *Troponin I 0.030 - H ng/mL, Range (< 0.028), Reference Range , 0.00 - 0.028 ng/mL Negative 0.029 - 0.29 ng/mL , Indeterminate Greater or Equal to 0.3 ng/mL Strongly suggests PA , . (21:12 JPIP) B type Natriuretic Peptide Collection DT: [place] Apr 20, 2016 20:43, *B type Natriuretic Peptide 575.6 - H pg/mL, Range (0-100). (21:14 JPIP) Francois: AADK=PHOENIX Robledo, Pebbles FRNAKEL=PHOENIX Moore, Helena HERNANDEZ=DO Whaley Joseph KMOR=PHOENIX Carrera, Gabriela &a-1R&a+25V*p+0X*[id number]*c202B*c15G*c2P*p-0X&a-25V&a+1R Name: Michelle Mendoza : 1935 F80 MedRec: [id number] AcctNum: [id number] Prepared: [place] Apr 20, 2016 23:21 by Interface Page 15 of 15 pMD MTDD
== END 2016-04-20 23:05 | disposition short-term general hospital (02) ==
LOC: BURERS 20:15
DX: I48.91 Unspecified atrial fibrillation (principal); J44.9 Chronic obstructive pulmonary disease, unspecified; E11.9 Type 2 diabetes mellitus without complications; I11.0 Hypertensive heart disease with heart failure; I50.9 Heart failure, unspecified
CPT/HCPCS: 71010; 80053; 82553; 83880; 84484; 85025; 87040; 93005; 94760; 96365; 96366; 96372; 96375; 96376; J1650; J1940; J3490

== ENCOUNTER 2016-08-08 07:29 | Outpatient (CLI) | payer MEDICARE, MEDICAID | END 2016-08-08 07:30 | disposition home or self-care (01) | LOC: BURLAB 07:29 | PROVIDERS: ATTEND Internal Medicine Cardiovascular Disease | DX: I48.0 Paroxysmal atrial fibrillation (principal); I42.9 Cardiomyopathy, unspecified; I10 Essential (primary) hypertension ==

== ENCOUNTER 2016-08-09 06:10 | Outpatient (CLI) | payer MEDICARE, MEDICAID ==
[2016-08-09 06:41] LABS: Anion Gap 16 mmol/L (10-20); BUN (Urea Nitrogen) 28 mg/dL (9.8-20.1); Calc. Creatinine Clearance 0 mL/min (70-130); Calcium 9.6 mg/dL (7.8-10.44); Carbon Dioxide 34 mmol/L (23-31); Chloride 99 mmol/L (98-107); Estimated GFR-MDRD 54; Glucose 105 mg/dL (83-110); Potassium 4.5 mmol/L (3.5-5.1); Sodium 144 mmol/L (136-145)
[2016-08-09 06:46] LABS: Digoxin 1.91 ng/mL (0.8-2.0)
== END 2016-08-09 06:11 | disposition home or self-care (01) ==
LOC: BURLAB 06:10
PROVIDERS: ATTEND Internal Medicine Cardiovascular Disease
DX: I48.0 Paroxysmal atrial fibrillation (principal); I42.9 Cardiomyopathy, unspecified; I10 Essential (primary) hypertension
CPT/HCPCS: 36415; 80048; 80162

== ENCOUNTER 2016-09-24 11:30 | Emergency (ER) | payer MEDICARE, MEDICAID ==
[2016-09-24 12:08] LABS: #Basophils 0.1 thou/uL (0.0-0.2); #Lymphocytes 1.5 thou/uL (1.20-3.40); #Monocytes 0.6 thou/uL (0.11-0.59); #Neutrophils 9.4 thou/uL (1.40-6.50); %Basophils 0.6 % (0.0-1.0); %Eosinophils 0.2 % (0.0-10.0); %Lymphocytes 12.5 % (21.0-51.0); %Monocytes 5.6 % (0.0-10.0); %Neutrophils 81.2 % (42.0-75.0); Mean Corpuscular HGB CONC 33.5 g/dL (32.0-36.0); Mean Corpuscular Hemoglobin 34.1 pg (27.0-31.0); Mean Platelet Volume 7.5 fL (7.4-10.4); Platelet Count 180 thou/uL (130-400); Red Blood Cell (RBC) Count 4.97 mill/uL (4.20-5.40); White Blood Cell (WBC) Count 11.6 thou/uL (4.8-10.8)
[2016-09-24] MEDS ORDERED: Ondansetron HCl/PF 4 MG/2 ML Vial ONE ×2 (12:09→13:31)
[2016-09-24] MEDS ORDERED: Famotidine In NaCl 20 mg/50 ml Premix Bag ONE (12:09)
[2016-09-24 12:24] LABS: MDiff Complete? YES; Macrocytosis SLIGHT = 6-15 cells (100X) (0-5/hpf); PLT Morphology Comment Appears Adequate
[2016-09-24 12:28] LABS: ALT (SGPT) 30 U/L (8-55); AST (SGOT) 34 U/L (5-34); Alkaline Phosphatase 34 U/L (40-150); Anion Gap 19 mmol/L (10-20); BUN (Urea Nitrogen) 38 mg/dL (9.8-20.1); Bilirubin, Total 0.8 mg/dL (0.2-1.2); Calc. Creatinine Clearance 0 mL/min (70-130); Calcium 9.1 mg/dL (7.8-10.44); Carbon Dioxide 28 mmol/L (23-31); Chloride 97 mmol/L (98-107); Estimated GFR-MDRD 45; Globulin 2.9 g/dL (2.4-3.5); Glucose 151 mg/dL (83-110); Potassium 4.5 mmol/L (3.5-5.1); Protein, Total 6.9 g/dL (6.0-8.3); Sodium 139 mmol/L (136-145)
[2016-09-24] MEDS ORDERED: Atropine Sulfate 1 mg/10 ml Syringe ONE (12:29)
[2016-09-24 12:31] LABS: CKMB 3.1 ng/mL (0-6.6); Troponin I 0.067 ng/mL (< 0.028)
[2016-09-24 13:00] LABS: Bilirubin Negative (Negative); Blood, Urine Negative (Negative); Clarity Clear (Clear); Glucose, Urine (Dipstick) Negative (Negative); Leukocyte Negative (Negative); Nitrite Negative (Negative); Protein, Urine (Dipstick) Negative (Neg-Trace); Urobilinogen 0.2 mg/dL (0.2-1.0)
--- NOTE | 2016-09-24 17:58 | RAD ---
PORTABLE CHEST 09/24/16 Comparison is made with the 04/20/16 study. This portable film at 1148 shows mild to moderate cardiomegaly that is no worse than before. There a re no congestive changes today. The lungs are hyperexpanded but show no focal consolidation. A linea r streak in the left mid lung is probably scarring and was present before. Calcification is seen in the aortic arch. The trachea is midline. IMPRESSION: Cardiomegaly but no acute finding. POS: HOME
== END 2016-09-24 13:37 | disposition short-term general hospital (02) ==
LOC: BURERS 11:30
DX: T46.0X1A Poisoning by cardiac-stimulant glycosides and drugs of similar action, accidental (unintentional), initial encounter (principal); R00.1 Bradycardia, unspecified; I11.0 Hypertensive heart disease with heart failure; I50.9 Heart failure, unspecified; J44.9 Chronic obstructive pulmonary disease, unspecified; E11.9 Type 2 diabetes mellitus without complications; I48.91 Unspecified atrial fibrillation; I25.10 Atherosclerotic heart disease of native coronary artery without angina pectoris; Z79.899 Other long term (current) drug therapy; Z87.891 Personal history of nicotine dependence
CPT/HCPCS: 71010; 80053; 80162; 81003; 82553; 83605; 83880; 84484; 85025; 85730; 93005; 94760; 96361; 96365; 96375; 96376; J0461; J2405

== ENCOUNTER 2016-10-02 22:19 | Emergency (ER) | payer MEDICARE, MEDICAID ==
[2016-10-02] MEDS ORDERED: Pantoprazole 40 MG VIAL ONE (22:52)
[2016-10-02] MEDS ORDERED: methylPREDNISolone Sod Succ/PF 125 MG/2 ML VIAL ONE (22:52)
[2016-10-02 23:20] LABS: Hemoglobin 14.7 g/dL (12.0-16.0); Mean Corpuscular HGB CONC 33.7 g/dL (32.0-36.0); Mean Corpuscular Hemoglobin 34.6 pg (27.0-31.0); Mean Platelet Volume 6.8 fL (7.4-10.4); Platelet Count 229 thou/uL (130-400); RBC Distribution Width 13.2 % (11.5-14.5); Red Blood Cell (RBC) Count 4.23 mill/uL (4.20-5.40); White Blood Cell (WBC) Count 7.4 thou/uL (4.8-10.8)
[2016-10-02 23:25] LABS: ALT (SGPT) 33 U/L (8-55); AST (SGOT) 36 U/L (5-34); Albumin 3.8 g/dL (3.4-4.8); Alkaline Phosphatase 34 U/L (40-150); Anion Gap 18 mmol/L (10-20); BUN (Urea Nitrogen) 24 mg/dL (9.8-20.1); Bilirubin, Total 0.5 mg/dL (0.2-1.2); Calc. Creatinine Clearance 0 mL/min (70-130); Calcium 9.1 mg/dL (7.8-10.44); Carbon Dioxide 27 mmol/L (23-31); Chloride 103 mmol/L (98-107); Estimated GFR-MDRD 41; Globulin 2.7 g/dL (2.4-3.5); Glucose 96 mg/dL (83-110); Potassium 4.9 mmol/L (3.5-5.1); Protein, Total 6.5 g/dL (6.0-8.3); Sodium 143 mmol/L (136-145)
[2016-10-02 23:27] LABS: Troponin I 0.103 ng/mL (< 0.028)
[2016-10-02 23:32] LABS: #Basophils 0.1 thou/uL (0.0-0.2); #Eosinphils 0.1 thou/uL (0.0-0.7); #Lymphocytes 2.2 thou/uL (1.20-3.40); #Neutrophils 4.3 thou/uL (1.40-6.50); %Basophils 1.4 % (0.0-1.0); %Eosinophils 1.4 % (0.0-10.0); %Lymphocytes 29.2 % (21.0-51.0); %Monocytes 12.6 % (0.0-10.0); %Neutrophils 55.5 % (42.0-75.0); MDiff Complete? YES; Macrocytosis SLIGHT = 6-15 cells (100X) (0-5/hpf); PLT Morphology Comment Appears Adequate
[2016-10-03 01:28] LABS: CKMB 2.4 ng/mL (0-6.6); Troponin I 0.101 ng/mL (< 0.028)
--- NOTE | 2016-10-03 07:31 | RAD ---
PORTABLE CHEST: Date: 10/02/16 An AP portable film at 2300 hours is compared with the 09/24/16 study. FINDINGS: Heart is mildly enlarged as usual. There is a little prominence of the interstitial markings, but ba rely more so than before. An area of scarring is seen in the left mid lung as usual. There are no ef fusions. Arteriosclerosis is noted as usual. Degenerative changes are present in the shoulder joints . IMPRESSION: Cardiomegaly. Probable trace of vascular congestion. POS: HOME
== END 2016-10-03 01:48 | disposition home or self-care (01) ==
LOC: BURERS 22:19
DX: J44.1 Chronic obstructive pulmonary disease with (acute) exacerbation (principal); E11.9 Type 2 diabetes mellitus without complications; I10 Essential (primary) hypertension; I48.91 Unspecified atrial fibrillation; I25.10 Atherosclerotic heart disease of native coronary artery without angina pectoris; M81.0 Age-related osteoporosis without current pathological fracture; I73.9 Peripheral vascular disease, unspecified; Z87.891 Personal history of nicotine dependence; Z79.84 Long term (current) use of oral hypoglycemic drugs; Z79.899 Other long term (current) drug therapy
CPT/HCPCS: 36415; 71010; 80053; 82553; 83880; 84484; 85025; 93005; 96374; 96375; C9113; J2930; J7620

== ENCOUNTER 2017-06-30 18:14 | Emergency (ER) | payer MEDICARE, MEDICAID ==
[2017-06-30 19:02] LABS: Hemoglobin 16.6 g/dL (12.0-16.0); Mean Corpuscular HGB CONC 35.9 g/dL (32.0-36.0); Mean Corpuscular Hemoglobin 35.6 pg (27.0-31.0); Mean Corpuscular Volume 99.2 fl (81.0-99.0); Mean Platelet Volume 6.2 fL (7.4-10.4); Platelet Count 230 thou/uL (130-400); RBC Distribution Width 12.5 % (11.5-14.5); Red Blood Cell (RBC) Count 4.66 mill/uL (4.20-5.40); White Blood Cell (WBC) Count 9.5 thou/uL (4.8-10.8)
[2017-06-30 19:21] LABS: ALT (SGPT) 20 U/L (8-55); AST (SGOT) 25 U/L (5-34); Albumin 4.1 g/dL (3.4-4.8); Alkaline Phosphatase 43 U/L (40-150); Anion Gap 15 mmol/L (10-20); BUN (Urea Nitrogen) 25 mg/dL (9.8-20.1); Bilirubin, Total 0.6 mg/dL (0.2-1.2); Calc. Creatinine Clearance 0 mL/min (70-130); Calcium 9.3 mg/dL (7.8-10.44); Carbon Dioxide 32 mmol/L (23-31); Chloride 99 mmol/L (98-107); Estimated GFR-MDRD 57; Globulin 3.3 g/dL (2.4-3.5); Glucose 106 mg/dL (83-110); Potassium 4.9 mmol/L (3.5-5.1); Protein, Total 7.4 g/dL (6.0-8.3); Sodium 141 mmol/L (136-145)
[2017-06-30 19:22] LABS: #Basophils 0.1 thou/uL (0.0-0.2); #Eosinphils 0.1 thou/uL (0.0-0.7); #Monocytes 0.6 thou/uL (0.11-0.59); #Neutrophils 6.7 thou/uL (1.40-6.50); %Basophils 0.6 % (0.0-1.0); %Eosinophils 1.1 % (0.0-10.0); %Lymphocytes 21.4 % (21.0-51.0); %Monocytes 6.7 % (0.0-10.0); %Neutrophils 70.2 % (42.0-75.0); MDiff Complete? YES
[2017-06-30 19:23] LABS: Macrocytosis SLIGHT = 6-15 cells (100X) (0-5/hpf); Polychromasia SLIGHT = 2-3 cells (100X) (0-2/hpf)
[2017-06-30 19:24] LABS: CKMB 2.4 ng/mL (0-6.6); Troponin I 0.016 ng/mL (< 0.028)
[2017-06-30] MEDS ORDERED: methylPREDNISolone Sod Succ/PF 125 MG/2 ML VIAL ONE (19:34)
[2017-06-30] MEDS ORDERED: Magnesium Sulfate 2 GM/100 ML BAG ONE (19:34)
[2017-06-30] MEDS ORDERED: Albuterol Sulfate 1.25 MG/3 ML NEB ONE (19:34)
[2017-06-30] MEDS ORDERED: cefTRIAXone\\ROCEPHIN 2 GM VIAL ONE (20:57)
[2017-06-30] MEDS ORDERED: Water For Injection,Sterile 20 ML ONE (20:57)
[2017-06-30 21:18] LABS: Bilirubin Negative (Negative); Blood, Urine Negative (Negative); Glucose, Urine (Dipstick) Negative (Negative); Leukocyte Trace (Negative); Nitrite Negative (Negative); Protein, Urine (Dipstick) Negative (Neg-Trace); Specific Gravity, Urine 1.015 (1.005-1.030); Urobilinogen 0.2 mg/dL (0.2-1.0); pH, Urine 5.5 (5.0-9.0)
--- NOTE | 2017-06-30 21:18 | RAD ---
PORTABLE CHEST: 06/30/17 An AP portable film at 1844 is compared with a 10/02/16 study. The right hilum has enlarged in the interval. Pathology here is suspected. A CT is recommended. The h ilum measures about 3.5 cm in diameter and is more rounded than it was before. An area of scarring is seen in the mid left lung. Mild cardiomegaly is about the same as before. Arteriosclerotic change is seen in the aorta. There are no congestive changes or pleural effusions. IMPRESSION: Interval enlargement and rounding of the right hilum. CT recommended for further evaluation. Code T POS: HOME
[2017-06-30 21:19] LABS: Clarity Hazy (Clear)
[2017-06-30 21:28] LABS: RBC/HPF 0-3 HPF (0-3); Squamous Epithelial 0-3 HPF (0-3); WBC/HPF 0-3 HPF (0-3)
== END 2017-06-30 21:28 | disposition home or self-care (01) ==
LOC: BURERS 18:14
DX: J44.1 Chronic obstructive pulmonary disease with (acute) exacerbation (principal); E11.9 Type 2 diabetes mellitus without complications; I48.91 Unspecified atrial fibrillation; I25.10 Atherosclerotic heart disease of native coronary artery without angina pectoris; M81.0 Age-related osteoporosis without current pathological fracture; Z87.891 Personal history of nicotine dependence; Z79.899 Other long term (current) drug therapy
CPT/HCPCS: 36415; 71045; 80053; 81003; 81015; 82553; 83880; 84484; 85025; 87040; 87086; 93005; 94640; 94760; 96361; 96365; 96375; J0696; J2930; J3475; J7620

== ENCOUNTER 2017-07-15 16:08 | Emergency (ER) | payer MEDICARE, MEDICAID ==
[2017-07-15] MEDS ORDERED: Ibuprofen 200 MG TAB ONE (16:42)
[2017-07-15] MEDS ORDERED: Fentanyl 100 MCG/2 ML VIAL ONE (17:47)
[2017-07-15 18:23] LABS: INR-International Normal Ratio 1.1
[2017-07-15 18:24] LABS: PTT 36.4 SEC (22.9-36.1)
[2017-07-15] MEDS ORDERED: Ondansetron HCl/PF 4 MG/2 ML Vial ONE (18:29)
[2017-07-15 18:32] LABS: ALT (SGPT) 29 U/L (8-55); AST (SGOT) 27 U/L (5-34); Albumin 3.9 g/dL (3.4-4.8); Alkaline Phosphatase 43 U/L (40-150); Anion Gap 15 mmol/L (10-20); BUN (Urea Nitrogen) 22 mg/dL (9.8-20.1); Bilirubin, Total 0.7 mg/dL (0.2-1.2); Calc. Creatinine Clearance 0 mL/min (70-130); Calcium 8.8 mg/dL (7.8-10.44); Carbon Dioxide 28 mmol/L (23-31); Chloride 102 mmol/L (98-107); Estimated GFR-MDRD 46; Globulin 2.7 g/dL (2.4-3.5); Glucose 107 mg/dL (83-110); Potassium 5.1 mmol/L (3.5-5.1); Protein, Total 6.6 g/dL (6.0-8.3); Sodium 140 mmol/L (136-145)
[2017-07-15 18:34] LABS: #Eosinphils 0.1 thou/uL (0.0-0.7); #Lymphocytes 1.9 thou/uL (1.20-3.40); #Monocytes 1.1 thou/uL (0.11-0.59); #Neutrophils 14.5 thou/uL (1.40-6.50); %Basophils 0.3 % (0.0-1.0); %Eosinophils 0.7 % (0.0-10.0); %Lymphocytes 10.8 % (21.0-51.0); %Monocytes 6.2 % (0.0-10.0); %Neutrophils 82.1 % (42.0-75.0); Hemoglobin 16.5 g/dL (12.0-16.0); MDiff Complete? YES; Macrocytosis SLIGHT = 6-15 cells (100X) (0-5/hpf); Mean Corpuscular HGB CONC 35.2 g/dL (32.0-36.0); Mean Corpuscular Hemoglobin 35.1 pg (27.0-31.0); Mean Corpuscular Volume 99.8 fl (81.0-99.0); Mean Platelet Volume 6.5 fL (7.4-10.4); Platelet Count 181 thou/uL (130-400); RBC Distribution Width 13.2 % (11.5-14.5); White Blood Cell (WBC) Count 17.7 thou/uL (4.8-10.8)
--- NOTE | 2017-07-15 21:45 | RAD ---
LEFT HIP Two views show a slight irregularity along the femoral neck. The appearance is suspicious for an im pacted fracture. Further imaging needed. IMPRESSION: Possible impacted subcapital fracture. See CT report to follow. POS: HOME
--- NOTE | 2017-07-15 21:47 | CT ---
CT OF THE LEFT HIP 07/15/[address] of the left hip was performed for evaluation of an abnormal plain radiograph of the hip. Ax ial slices were acquired, then coronal and sagittal reconstructions were done. This study confirms an impacted subcapital fracture of the hip. There is no displacement and there is no dislocation. The articular surface of the femoral head is smooth. Other visible nearby structures were intact. IMPRESSION: Impacted subcapital fracture of the left hip. Findings discussed with Dr. Pritchard at 173 on 07/15/17. POS: HOME
== END 2017-07-15 18:52 | disposition short-term general hospital (02) ==
LOC: BURERS 16:08
DX: S72.012A Unspecified intracapsular fracture of left femur, initial encounter for closed fracture (principal); W18.30XA Fall on same level, unspecified, initial encounter; E11.9 Type 2 diabetes mellitus without complications; J44.9 Chronic obstructive pulmonary disease, unspecified; I48.91 Unspecified atrial fibrillation; I25.10 Atherosclerotic heart disease of native coronary artery without angina pectoris; Z87.891 Personal history of nicotine dependence; Z79.899 Other long term (current) drug therapy
CPT/HCPCS: 80053; 85025; 85610; 85730; 96361; 96374; 96375; J2405; J3010

== ENCOUNTER 2018-06-17 18:05 | Emergency (ER) | payer MEDICARE, MEDICAID ==
[2018-06-17] MEDS ORDERED: Bacitracin Zinc 1 Packet ONE (18:26)
[2018-06-17] MEDS ORDERED: Adacel (T-DAP) 0.5 ML SYRINGE ONE (18:26)
[2018-06-17] MEDS ORDERED: Acetaminophen/Codeine 30-300mg Tablet ONE (19:16)
[2018-06-17] MEDS ORDERED: Cephalexin 500 MG CAP ONE (19:36)
--- NOTE | 2018-06-17 19:45 | RAD ---
RIGHT FOREARM TWO VIEWS 06/17/18 No fracture was visible. The radius and ulna currently appear intact. The carpal bones are not really evaluated on this study. IMPRESSION: No acute findings. POS: HOME
--- NOTE | 2018-06-17 20:01 | RAD ---
RIGHT HUMERUS TWO VIEWS 06/17/18 No acute fracture was seen. There are moderately severe degenerative changes in the glenohumeral join t consisting of osteophytes and joint space narrowing. There may be an old Hill-Sachs deformity on th e superior aspect of the humeral head. The AC joint is narrowed. No areas of bony destruction were se en. IMPRESSION: Chronic changes but no acute finding. POS: HOME
== END 2018-06-17 19:36 | disposition home or self-care (01) ==
LOC: BURERS 18:05
DX: S51.811A Laceration without foreign body of right forearm, initial encounter (principal); S80.812A Abrasion, left lower leg, initial encounter; E11.9 Type 2 diabetes mellitus without complications; I48.91 Unspecified atrial fibrillation; I10 Essential (primary) hypertension; I25.10 Atherosclerotic heart disease of native coronary artery without angina pectoris; J44.9 Chronic obstructive pulmonary disease, unspecified; Z87.891 Personal history of nicotine dependence; Z79.899 Other long term (current) drug therapy; Z79.51 Long term (current) use of inhaled steroids; W18.30XA Fall on same level, unspecified, initial encounter
CPT/HCPCS: 90471; 90715

== ENCOUNTER 2018-06-20 17:54 | Emergency (ER) | payer MEDICARE, OTHER ==
[2018-06-20] MEDS ORDERED: Bacitracin Zinc 1 Packet ONE ×2 (18:20→20:18)
[2018-06-20 19:20] LABS: ALT (SGPT) 14 U/L (8-55); AST (SGOT) 26 U/L (5-34); Alkaline Phosphatase 43 U/L (40-150); Anion Gap 16 mmol/L (10-20); BUN (Urea Nitrogen) 49 mg/dL (9.8-20.1); Bilirubin, Total 0.8 mg/dL (0.2-1.2); CK (CPK) 172 U/L (29-168); Calc. Creatinine Clearance 0 mL/min (70-130); Calcium 9.3 mg/dL (7.8-10.44); Carbon Dioxide 28 mmol/L (23-31); Chloride 94 mmol/L (98-107); Estimated GFR-MDRD 34; Globulin 2.9 g/dL (2.4-3.5); Glucose 99 mg/dL (83-110); Potassium 5.1 mmol/L (3.5-5.1); Protein, Total 6.9 g/dL (6.0-8.3); Sodium 133 mmol/L (136-145)
[2018-06-20 19:24] LABS: #Basophils 0.1 thou/uL (0.0-0.2); #Lymphocytes 1.1 thou/uL (1.20-3.40); #Neutrophils 7.5 thou/uL (1.40-6.50); %Basophils 0.9 % (0.0-1.0); %Eosinophils 0.2 % (0.0-10.0); %Lymphocytes 11.2 % (21.0-51.0); %Monocytes 10.3 % (0.0-10.0); %Neutrophils 77.4 % (42.0-75.0); Band 1 % (5-11); Eosinophils 1 % (0-10); Hemoglobin 13.3 g/dL (12.0-16.0); Lymphocytes 11 % (21-51); MDiff Complete? YES; Mean Corpuscular HGB CONC 33.9 g/dL (32.0-36.0); Mean Corpuscular Hemoglobin 34.2 pg (27.0-31.0); Mean Platelet Volume 6.1 fL (7.4-10.4); Monocytes 12 % (0-10); Neutrophil 75 % (42-75); Platelet Count 186 thou/uL (130-400); RBC Distribution Width 12.3 % (11.5-14.5); White Blood Cell (WBC) Count 9.7 thou/uL (4.8-10.8)
[2018-06-20] MEDS ORDERED: Aspirin Chewable 81 MG TAB ONE (19:33)
[2018-06-20] MEDS ORDERED: methylPREDNISolone Sod Succ/PF 125 MG/2 ML VIAL ONE (19:33)
[2018-06-20 19:36] LABS: CKMB 1.6 ng/mL (0-6.6)
--- NOTE | 2018-06-20 23:04 | RAD ---
PORTABLE CHEST: 06/20/2018 1835 HOURS COMPARISON: 07/16/2017 FINDINGS: Mild cardiomegaly is about the same. There is no congestive change or pleural effusion. The main pu lmonary artery and pulmonary artery branches are prominent centrally, which could be due to pulmonary arterial hypertension. A cardiac pacer has been placed since the prior study (AICD). The lungs are hyperexpanded but clear. Degenerative changes are present in each glenohumeral joint, particularly the right. Calcific changes are seen in the aortic arch. IMPRESSION: Cardiomegaly and chronic changes but no acute findings. POS: HOME
== END 2018-06-20 20:43 | disposition short-term general hospital (02) ==
LOC: BURERS 17:54
DX: J44.1 Chronic obstructive pulmonary disease with (acute) exacerbation (principal); R79.89 Other specified abnormal findings of blood chemistry; M81.0 Age-related osteoporosis without current pathological fracture; E11.9 Type 2 diabetes mellitus without complications; I48.91 Unspecified atrial fibrillation; I10 Essential (primary) hypertension; I25.10 Atherosclerotic heart disease of native coronary artery without angina pectoris; Z87.891 Personal history of nicotine dependence; Z79.899 Other long term (current) drug therapy; Z79.51 Long term (current) use of inhaled steroids; Z79.84 Long term (current) use of oral hypoglycemic drugs
CPT/HCPCS: 71045; 80053; 82550; 82553; 83880; 84484; 85025; 93005; 94640; 94760; 96374; J2930; J7620